=== PATIENT | male | born 1995 | race Hispanic/Latino ===

== ENCOUNTER 2017-10-26 17:14 | Emergency (ER) | payer BC, SELFPAY ==
[2017-10-26] MEDS ORDERED: Lidocaine 1% (PF) 30 ML VIAL ONE (17:28)
--- NOTE | 2017-10-26 18:12 | RAD ---
RIGHT HUMERUS: 10/26/17 Two views. HISTORY: Injury with laceration. No osseous abnormality identified. No soft tissue abnormality seen. IMPRESSION: Negative exam. POS: [facility]
[2017-10-26] MEDS ORDERED: Bacitracin Zinc 1 Packet ONE (20:07)
== END 2017-10-26 20:16 | disposition home or self-care (01) ==
LOC: ERS 17:14
DX: S41.111A Laceration without foreign body of right upper arm, initial encounter (principal); W25.XXXA Contact with sharp glass, initial encounter
CPT/HCPCS: 12002; J2001